=== PATIENT | female | born 1995 | race African-American/Black ===

== ENCOUNTER 2018-06-17 11:43 | Emergency (ER) | payer MEDICAID ==
[~2018-06-17] VITALS: Ht 165.1 cm; Wt 77.3 kg
[2018-06-17 12:46] VITALS: BP 113/71
[2018-06-17 13:53] LABS: URINE HCG NEGATIVE (NEG)
[2018-06-17 13:54] LABS: CLARITY,URINE CLOUDY (Clear); COLOR,URINE YELLOW (Yellow); GLUCOSE, URINE NEGATIVE (Neg); KETONES,URINE NEGATIVE (Neg); LEUKOCYTE ESTERASE ,URINE NEGATIVE (Neg); NITRITES, URINE POSITIVE (Neg); OCCULT BLOOD,URINE NEGATIVE (Neg); PH,URINE 8.5 (4.8-8.0); PROTEIN,URINE TRACE mg/dl (Neg)
[2018-06-17 13:55] LABS: UA COLLECTION TYPE OTHER
[2018-06-17 14:00] LABS: WBC,URINE 20-30 /HPF (0-4)
[2018-06-17 14:01] LABS: AMORPHOUS PHOSPHATES 2+; BACTERIA,URINE 4+ /HPF (Neg); MUCUS STRANDS MODERATE /LPF (Neg); RBC,URINE NONE SEEN /HPF (0-2); SQUAMOUS EPITHELIAL CELL,UR MANY /LPF (FEW)
[2018-06-17] MEDS ORDERED: CEPH-572 PO (14:24)
== END 2018-06-17 14:46 | disposition home or self-care (01) ==
LOC: ER 11:44
DX: S01.00XA Unspecified open wound of scalp, initial encounter (principal); N39.0 Urinary tract infection, site not specified; Z79.899 Other long term (current) drug therapy; X58.XXXA Exposure to other specified factors, initial encounter; Y93.89 Activity, other specified; Y92.89 Other specified places as the place of occurrence of the external cause; Y99.8 Other external cause status
CPT/HCPCS: 81001; 81025; 99283